=== PATIENT | female | born 1985 | race Caucasian/White ===

== ENCOUNTER 2016-09-25 15:31 | Emergency (ER) | payer OTHER ==
[~2016-09-25] VITALS: Ht 162.6 cm; Wt 106.6 kg
[~2016-09-25 15:31] MED LIST: AMOXICILLIN PO; ANTIVERT PO; BENTYL20 MG PO; BENZONATATE PO; BUSPAR5 M2 DOB; BUSPAR5 MG PO; CELEXA20 MG PO; CITALOPRAM HBR40 MG PO; FLEXERIL10 M1 PO; JUNEL FE 1.5-31 EACH PO; KEFLEX500 MG PO; LOMOTIL TABLET1 TAB PO; LORTAB 7.5-5001 TAB PO; NO MEDICATIONS; ORUDIS75 M1 DOB; PAXIL PO; PHENERGAN25 M1 PO; PHENERGAN25 MG PO; PROZAC PO; ROBITUSSIN PO; TYLENOL #3 PO; VOLTAREN75 MG PO; ZOFRAN ODT4 MG PO; ZOLOFT PO
== END 2016-09-25 16:25 | disposition home or self-care (01) ==
LOC: SED 15:31
DX: R10.9 Unspecified abdominal pain (principal); Z90.49 Acquired absence of other specified parts of digestive tract; Z90.89 Acquired absence of other organs; Z79.899 Other long term (current) drug therapy
CPT/HCPCS: 96374; 96375; 99283; J1885; J2765